=== PATIENT | female | born 1980 ===

== ENCOUNTER 2016-10-03 23:18 | Emergency (ER) | payer OTHER ==
[2016-10-03 23:30] VITALS: BMI 40.4
[2016-10-03 23:34] VITALS: TEMP 97.3
[2016-10-03] MEDS ORDERED: Sodium Chloride 0.9% 1,000 ML IV STA (23:58)
[2016-10-04 00:51] LABS: ADD MANUAL DIFF? NO
[2016-10-04 00:57] LABS: URINE BILIRUBIN NEGATIVE (NEGATIVE); URINE BLOOD TRACE-LYSED (NEGATIVE); URINE GLUCOSE (UA) NEGATIVE (NEGATIVE); URINE KETONE NEGATIVE (NEGATIVE); URINE LEUKOCYTE ESTERASE TRACE Leu/uL (NEGATIVE); URINE PROTEIN NEGATIVE mg/dL (<30 mg/dL); URINE UROBILINOGEN 0.2 E.U./dL (<1 E.U./dL)
[2016-10-04 00:58] LABS: BASO # 0.03 K/mm3 (0.0-2.0); BASO % 0.3 % (0.0-3.0); EOS # 0.2 (0.0-0.7); EOS % 2.3 % (1.5-5.0); GRAN # 6.01 (1.4-6.5); GRAN % 58.3 % (50.0-68.0); HEMATOCRIT 36.1 % (36.0-48.0); LYMPH # 3.4 (1.2-3.4); LYMPH % 33.2 % (22.0-35.0); MEAN CELL VOLUME 80.4 fL (80.0-105.0); MEAN CORPUSCULAR HEMOGLOBIN 26.9 pg (25.0-35.0); MEAN CORPUSCULAR HGB CONC 33.5 g/dl (31.0-37.0); MEAN PLATELET VOLUME 10.6 fl (7.0-11.0); MONO # 0.6 (0.1-0.6); MONO % 5.9 % (1.0-6.0); PLATELET COUNT 245 10^3/uL (120.0-450.0); RED CELL DISTRIBUTION WIDTH 15.3 % (11.5-14.5); WHITE BLOOD COUNT 10.3 10^3/ul (4.5-11.0)
[2016-10-04 01:09] LABS: ALKALINE PHOSPHATASE 95 U/L (38-133); ALT/SGPT 34 U/L (7-56); AST/SGOT 29 U/L (15-39); BILIRUBIN,TOTAL 0.3 mg/dL (0.2-1.3); BLOOD UREA NITROGEN 14 mg/dL (7-21); CALCIUM 8.6 mg/dL (8.4-10.5); CARBON DIOXIDE 28 mmol/L (21-33); CHLORIDE 104 mmol/L (95-110); GFR AFRICAN-AMERICAN > 60; GLUCOSE,RANDOM 81 mg/dL (70-110); LIPASE 28 U/L (23-300); POTASSIUM 3.5 mmol/L (3.6-5.0); SODIUM 139 mmol/L (132-148); TOTAL PROTEIN 7.4 g/dL (5.8-8.3)
[2016-10-04 01:12] LABS: URINE APPEARANCE SL CLOUDY (CLEAR); URINE COLOR YELLOW (YELLOW)
[2016-10-04 01:16] LABS: URINE BACTERIA SMALL (NEG); URINE RBC 0 - 2 /hpf (0-2)
[2016-10-04] MEDS ORDERED: Potassium Chloride 20 mEq/15 ml LIQ UD PO STA (01:23)
[2016-10-04] MEDS ORDERED: Morphine 4 mg/ml ISec IVP STA (01:24)
--- NOTE | 2016-10-04 01:29 | ED PDOC ---
Arrival/HPI - General Chief Complaint: Back Pain Time Seen by Provider: 10/03/16 23:37 Historian: Patient - History of Present Illness Narrative History of Present Illness (Text): 10/04/16 01:24 Patient complains of gradual onset of constant sharp pain in the left flank radiating to the left side of the abdomen that has become progressively worse in the past 2 hours. Otherwise: (-) nausea / vomiting, (-) diarrhea, (-) fever, (-) back pain, (-) urinary symptoms, (-) vaginal discharge / bleeding, (-) melena, (-) hematochezia, (-) fever, (-) injury. Has history of prior abdominal surgery - R ovary was removed due to a cyst. [facility] [place] Past Medical History - Provider Review Nursing Documentation Reviewed: Yes - Infectious Disease Hx of Infectious Diseases: None - Tetanus Immunization Tetanus Immunization: Unknown - Cardiac Hx Cardiac Disorders: No - Pulmonary Hx Respiratory Disorders: Yes Hx Asthma: Yes - Neurological Hx Neurological Disorder: No Hx Alzheimer's Disease: No - HEENT Hx HEENT Disorder: No - Renal Hx Renal Disorder: No - Endocrine/Metabolic Hx Endocrine Disorders: No - Hematological/Oncological Hx Blood Disorders: No - Integumentary Hx Dermatological Disorder: No - Musculoskeletal/Rheumatological Hx Musculoskeletal Disorders: No - Gastrointestinal Hx Gastrointestinal Disorders: No - Genitourinary/Gynecological Hx Genitourinary Disorders: No - Psychiatric Hx Psychophysiologic Disorder: No Hx Substance Use: Yes - Past Surgical History Past Surgical History: No Previous - Surgical History Hx Orthopedic Surgery: Yes (left roator cuff surgery) Other/Comment: right oophorectomy - Anesthesia Hx Anesthesia: Yes Hx Anesthesia Reactions: No Hx Malignant Hyperthermia: No - Suicidal Assessment Feels Threatened In Home Enviroment: No Family/Social History - Physician Review Nursing Documentation Reviewed: Yes Family/Social History: No Known Family HX Smoking Status: Light Smoker < 10 Cigarettes Daily Hx Alcohol Use: Yes Frequency of alcohol use: Socially Hx Substance Use: Yes Hx Substance Use Treatment: No Allergies/Home Meds Allergies/Adverse Reactions: Allergies No Known Allergies Allergy (Verified 05/01/16 16:09) Review of Systems - Review of Systems Constitutional: Normal. absent: Fatigue, Weight Change, Fevers Cardiovascular: Normal. absent: Chest Pain, Palpitations, Edema Gastrointestinal: Normal, Abdominal Pain. absent: Stool Changes, Appetite Changes Genitourinary Female: Normal Musculoskeletal: Normal. absent: Arthralgias, Back Pain, Neck Pain Skin: Normal. absent: Rash, Pruritis, Skin Lesions Physical Exam - Physical Exam Narrative Physical Exam (Text): 10/04/16 01:30 GENERAL APPEARANCE: Patient is awake, alert, oriented x 3, in moderate painful distress. SKIN: Warm, dry; (-) cyanosis. EYES: (-) conjunctival pallor, (-) scleral icterus. ENMT: Mucous membranes dry. NECK: (-) tenderness, (-) stiffness, (-) lymphadenopathy. CHEST AND RESPIRATORY: (-) rales, (-) rhonchi, (-) wheezes; breath sounds equal bilaterally. HEART AND CARDIOVASCULAR: (-) irregularity; (-) murmur, (-) gallop. ABDOMEN AND GI: (-) distention. Bowel sounds active; (+) L sided abdominal and L flank tenderness, (-) guarding, (-) rebound, (-) palpable masses, (-) CVA tenderness. EXTREMITIES: (-) deformity, (-) edema, (+) distal pulses. NEURO AND PSYCH: Mental status as above; (-) focal findings. Vital Signs Temp Pulse Resp BP Pulse Ox 10/04/16 01:58 63 18 101/52 L 99 10/03/16 23:34 97.3 F L 97 H 20 108/83 97 Medical Decision Making ED Course and Treatment: 10/04/16 01:31 36-year-old female presents with 1 day history of left-sided flank pain radiating to the left side of the abdomen with no other GI or symptoms. Based on exam, to r/o renal colic. Plan: -- Labs -- IV fluids -- Urinalysis -- Zofran / Toradol -- Reassess and disposition -- CT AP Labs reviewed, K 3.5, +blood to be present in the urine. On reevaluation, the patient reports of continued pain despite being medicated earlier with Toradol and Zofran. On exam, patient is in mild painful distress, abdomen remained soft with mild left-sided abdominal and mild left CVA tenderness. Patient given a dose of morphine 4 mg IV and KCL PO. CT abdomen and pelvis without contrast still pending. 10/04/16 02:29 CT results show no kidney stone and show no acute findings. On reevaluation, patient reports significant improvement of her pain. She is laying in bed comfortably in no acute distress. On exam abdomen is soft with no tenderness, no flank or CVA tenderness. Based on history, exam and diagnostic results plan will be for outpatient f/u. Patient states she fully agrees with and understands discharge instructions. States that she agrees with the plan and disposition. Verbalized and repeated discharge instructions and plan. I have given the patient opportunity to ask any additional questions. Follow up with primary care physician in 1-2 days without fail. Advised to take medication as prescribed. Return to the emergency room at any time for any new or worsening symptoms. - Lab Interpretations Lab Results: 10/04/16 00:20 10/04/16 00:20 Lab Results 10/04/16 00:20: Sodium 139, Potassium 3.5 L, Chloride 104, Carbon Dioxide 28, Anion Gap 11, BUN 14, Creatinine 0.7, Est GFR ( Amer) > 60, Est GFR (Non- Af Amer) > 60, Random Glucose 81, Calcium 8.6, Total Bilirubin 0.3, AST 29, ALT 34, Alkaline Phosphatase 95, Total Protein 7.4, Albumin 3.8, Globulin 3.7, Albumin/Globulin Ratio 1.0 L, Lipase 28 10/04/16 00:20: Urine Color Yellow, Urine Appearance Sl cloudy, Urine pH 6.0, Ur Specific [place] >= 1.030, Urine Protein Negative, Urine Glucose (UA) Negative, Urine Ketones Negative, Urine Blood Trace-lysed H, Urine Nitrate Negative, Urine Bilirubin Negative, Urine Urobilinogen 0.2, Ur Leukocyte Esterase Trace H, Urine RBC 0 - 2, Urine WBC 1 - 3, Ur Epithelial Cells 3 - 4, Urine Bacteria Small 10/04/16 00:20: WBC 10.3, RBC 4.49, Hgb 12.1, Hct 36.1, MCV 80.4, MCH 26.9, MCHC 33.5, RDW 15.3 H, Plt Count 245, MPV 10.6, Gran % 58.3, Lymph % (Auto) 33.2 , [place] % (Auto) 5.9, Eos % (Auto) 2.3, Baso % (Auto) 0.3, Gran # 6.01, Lymph # 3.4, [place] # 0.6, Eos # 0.2, Baso # 0.03 I have reviewed the lab results: Yes (K 3.5, Urinalysis : +blood) - RAD Interpretation Narrative RAD Interpretations (Text): 10/04/16 02:26 CT A/P w/o IV/PO contrast: FINDINGS: Lower thorax: No acute findings. ABDOMEN: Liver: Unremarkable. Gallbladder and bile ducts: Unremarkable. No calcified stones. No ductal dilation. Pancreas: Unremarkable. No ductal dilation. Spleen: Unremarkable. No splenomegaly. Adrenals: Unremarkable. No mass. Kidneys and ureters: No evidence of stones within the kidneys, ureters or bladder. No evidence of obstructive uropathy or obstructive nephropathy. Stomach and bowel: Appendix not identified - several bowel loops in lower abdomen. No pericecal inflammatory changes. Appendix: See above. PELVIS: Bladder: Unremarkable. No stones. Reproductive: Unremarkable as visualized. ABDOMEN and PELVIS: Intraperitoneal space: Unremarkable. No free air. No significant fluid collection. Bones/joints: No acute fracture. No dislocation. Soft tissues: Unremarkable. Vasculature: Unremarkable. No abdominal aortic aneurysm. Lymph nodes: Unremarkable. No enlarged lymph nodes. IMPRESSION: 1. No evidence of stones within the kidneys, ureters or bladder. No evidence of obstructive uropathy or obstructive nephropathy. 2. Appendix not identified - several bowel loops in lower abdomen. No pericecal inflammatory changes. Dictated and Authenticated by: Chuy Ballard MD 10/04/2016 2:08 AM Eastern Time ([place] & [place]) Radiology Orders: 10/03/16 23:58 ABD & PELVIS W/O PO OR IV CONT [CT] Stat - Medication Orders Current Medication Orders: Discontinued Medications Sodium Chloride (Sodium Chloride 0.9%) 1,000 mls @ 1,000 mls/hr IV .Q1H STA Stop: 10/04/16 00:57 Last Admin: 10/04/16 00:41 Dose: 1,000 mls/hr Ketorolac Tromethamine (Toradol) 30 mg IVP STAT STA Stop: 10/03/16 23:59 Last Admin: 10/04/16 00:41 Dose: 30 mg Re-Assess: WEST Pain Assessment Document 10/04/16 01:41 RD (Rec: 10/04/16 01:51 RD [id number]) Pain Reassessment Is this a pain reassessment? Yes Sleep Is patient sleeping during reassessment? No Presence of Pain Presence of Pain Yes Location Pain Location Body Site 4th Toe Morphine Sulfate (Morphine) 4 mg IVP STAT STA Stop: 10/04/16 01:25 Last Admin: 10/04/16 01:47 Dose: 4 mg Ondansetron HCl (Zofran Inj) 4 mg IVP STAT STA Stop: 10/03/16 23:59 Last Admin: 10/04/16 00:41 Dose: 4 mg Potassium Chloride (Potassium Chloride Oral Soln) 40 meq PO STAT STA Stop: 10/04/16 01:24 Last Admin: 10/04/16 01:47 Dose: 40 meq - PA / TRAFFIC SIGNAL MECHANIC / Resident Statement MD/DO has reviewed & agrees with the documentation as recorded. Disposition/Present on Arrival - Present on Arrival Any Indicators Present on Arrival: No History of DVT/PE: No History of Uncontrolled Diabetes: No Urinary Catheter: No History of Decub. Ulcer: No History Surgical Site Infection Following: None - Disposition Have Diagnosis and Disposition been Completed?: Yes Diagnosis: Left flank pain Disposition: HOME/ ROUTINE Disposition Time: 02:00 Patient Plan: Discharge Patient Problems: Current Active Problems Problem Status Onset Left flank pain Acute Condition: IMPROVED Discharge Instructions (ExitCare): Flank Pain (ED) Print Language: SERBIAN Additional Instructions: Thank you for letting us take care of you today. You were treated for left flank pain, UTI. The emergency medical care you received today was directed at your acute symptoms. If you were prescribed any medication, please fill it and take as directed. It may take several days for your symptoms to resolve. Return to the Emergency Department if your symptoms worsen, do not improve, or if you have any other problems. Please contact your doctor in 2 days for re-evaluation and follow up / or call one of the physicians/clinics you have been referred to that are listed on the Patient Visit Information form that is included in your discharge packet. Bring any paperwork you were given at discharge with you along with any medications you are taking to your follow up visit. Our treatment cannot replace ongoing medical care by a primary care provider (PCP) outside of the emergency department. Thank you for allowing the [facility] team to be part of your care today. Prescriptions: Naproxen 500 mg PO BID #30 tab Nitrofurantoin Macrocrystals [Macrobid] 100 mg PO BID #20 cap Referrals: Ina Esparza Regage, [Primary Care Provider] - Follow up with primary Forms: WORK NOTE
[2016-10-04 01:59] VITALS: BP 101/52; PULSE 63; RESP 18; O2SAT 99
--- NOTE | 2016-10-04 07:45 | CT ---
PROCEDURE: CT Abdomen and Pelvis without intravenous contrast HISTORY: L flank pain, r/o stone COMPARISON: None. TECHNIQUE: CT scan of the abdomen and pelvis was performed without administration of oral or intravenous contrast. Coronal and sagittal reformatted images were obtained. Radiation dose: Total exam DLP = 1359.60 mGy-cm. This CT exam was performed using one or more of the following dose reduction techniques: Automated exposure control, adjustment of the mA and/or kV according to patient size, and/or use of iterative reconstruction technique. FINDINGS: LOWER THORAX: The lung bases are clear. LIVER: The liver is normal in size. No intra hepatic biliary ductal dilatation. GALLBLADDER AND BILE DUCTS: The gallbladder is contracted. PANCREAS: The pancreas is normal in size. No gross lesion or ductal dilatation. SPLEEN: There is borderline splenomegaly. ADRENALS: Both adrenal glands are normal in size without discrete nodule. KIDNEYS AND URETERS: Both kidneys are normal in size without hydronephrosis or nephrolithiasis. VASCULATURE: No aortic aneurysm. BOWEL: The small bowel loops are normal in caliber. The colon is unremarkable. APPENDIX: No inflammatory changes in the right lower quadrant. PERITONEUM: No free fluid. No free air. LYMPH NODES: No enlarged lymph nodes. BLADDER: Partially decompressed. REPRODUCTIVE: The uterus is normal in size. BONES: No acute fracture. OTHER FINDINGS: None. IMPRESSION: No acute abdominal or pelvic abnormality. Specifically, no evidence of nephrolithiasis, hydronephrosis or obstructive uropathy. The appendix is not distinctly identified however no inflammatory changes in the right lower quadrant. A preliminary report was provided by [facility].
== END 2016-10-04 02:41 | disposition home or self-care (01) ==
LOC: ED 23:18
DX: R10.9 Unspecified abdominal pain (principal)
CPT/HCPCS: 74176; 80053; 81001; 83690; 85025; 87086; 96361; 96374; 96375; 99283; J1885; J2270; J2405; J7040

== ENCOUNTER 2017-05-31 09:31 | Emergency (ER) | payer OTHER ==
[2017-05-31 09:31] VITALS: BMI 40.4
[2017-05-31 09:44] VITALS: RESP 18; O2SAT 98
[2017-05-31] MEDS ORDERED: Promethazine/Cod 6.25mg-10mg/5ml Syr UD PO STA (10:33)
--- NOTE | 2017-05-31 10:34 | ED PDOC ---
Arrival/HPI - General Chief Complaint: Flu-like Symptoms Time Seen by Provider: 05/31/17 10:33 Historian: Patient - History of Present Illness Narrative History of Present Illness (Text): 05/31/17 10:34 This 37 yo female with pmh asthma, presents to this ED c/o cough, fever, mylagias x 1 day. Patient denies sob, cp, recent travel, sick contact, dizziness, or abnormal gait. Time/Duration: Other (see hpi) Context: Home Past Medical History - Provider Review Nursing Documentation Reviewed: Yes - Infectious Disease Hx of Infectious Diseases: None - Tetanus Immunization Tetanus Immunization: Unknown - Cardiac Hx Cardiac Disorders: No - Pulmonary Hx Respiratory Disorders: Yes Hx Asthma: Yes - Neurological Hx Neurological Disorder: No - HEENT Hx HEENT Disorder: No - Renal Hx Renal Disorder: No - Endocrine/Metabolic Hx Endocrine Disorders: No - Hematological/Oncological Hx Blood Disorders: No - Integumentary Hx Dermatological Disorder: No - Musculoskeletal/Rheumatological Hx Musculoskeletal Disorders: No - Gastrointestinal Hx Gastrointestinal Disorders: No - Genitourinary/Gynecological Hx Genitourinary Disorders: No - Psychiatric Hx Psychophysiologic Disorder: No Hx Substance Use: Yes - Past Surgical History Past Surgical History: No Previous - Surgical History Hx Orthopedic Surgery: Yes (left roator cuff surgery) Other/Comment: right oophorectomy - Anesthesia Hx Anesthesia: Yes Hx Anesthesia Reactions: No Hx Malignant Hyperthermia: No - Suicidal Assessment Feels Threatened In Home Enviroment: No Family/Social History - Physician Review Nursing Documentation Reviewed: Yes Family/Social History: Other (noncontributory) Smoking Status: Light Smoker < 10 Cigarettes Daily Hx Alcohol Use: Yes Hx Substance Use: Yes Hx Substance Use Treatment: No Allergies/Home Meds Allergies/Adverse Reactions: Allergies No Known Allergies Allergy (Verified 05/31/17 09:46) Review of Systems - Review of Systems Constitutional: Fevers. absent: Fatigue, Weight Change Eyes: Normal ENT: Rhinorrhea Respiratory: Cough. absent: SOB, Sputum, Wheezing Cardiovascular: Normal. absent: Chest Pain, Palpitations Gastrointestinal: Normal. absent: Abdominal Pain, Nausea, Vomiting Genitourinary Female: Normal. absent: Dysuria, Frequency, Hematuria Musculoskeletal: Myalgias Skin: Normal. absent: Rash Neurological: Normal. absent: Headache, Dizziness, Focal Weakness, Gait Changes , Speech Changes, Facial Droop, Disequilibrium, Seizure Endocrine: Normal Hemo/Lymphatic: Normal Psychiatric: Normal Physical Exam Vital Signs Temp Pulse Resp BP Pulse Ox 05/31/17 09:44 97.5 F L 110 H 18 155/85 H 98 Temperature: Afebrile Blood Pressure: Normal Pulse: Tachycardic Respiratory Rate: Normal Appearance: Positive for: Well-Appearing, Non-Toxic, Comfortable Pain Distress: None Mental Status: Positive for: Alert and Oriented X 3 - Systems Exam Head: Present: Atraumatic, Normocephalic Pupils: Present: PERRL Extroacular Muscles: Present: EOMI Conjunctiva: Present: Normal Mouth: Present: Moist Mucous Membranes Neck: Present: Normal Range of Motion. No: Meningeal Signs Respiratory/Chest: Present: Clear to Auscultation, Good Air Exchange. No: Respiratory Distress, Accessory Muscle Use Cardiovascular: Present: Regular Rate and Rhythm, Normal S1, S2. No: Murmurs Abdomen: Present: Normal Bowel Sounds. No: Tenderness, Distention, Peritoneal Signs Back: Present: Normal Inspection Upper Extremity: Present: Normal Inspection, Normal ROM. No: Cyanosis, Edema Lower Extremity: Present: Normal Inspection, Normal ROM. No: Edema Neurological: Present: GCS=15, CN II-XII Intact, Speech Normal Skin: Present: Warm, Dry, Normal Color. No: Rashes Psychiatric: Present: Alert, Oriented x 3, Normal Insight, Normal Concentration Medical Decision Making ED Course and Treatment: 05/31/17 12:19 Re-evaluation. Patient feels better. Discussed results and plan with patient who expresses understanding. All questions answered and there is agreement with the plan to discharge home with instructions. Patient stable for discharge. Return if symptoms persist or worsen. Re-evaluation Time: 12:19 Reassessment Condition: Re-examined, Improved - Lab Interpretations Lab Results: Lab Results 05/31/17 11:29: Influenza Typ A,B (EIA) Negative for flu a/b - Medication Orders Current Medication Orders: Discontinued Medications Acetaminophen (Tylenol 325mg Tab) 975 mg PO STAT STA Stop: 05/31/17 10:34 Last Admin: 05/31/17 10:45 Dose: 975 mg MAR Pain/Vitals Document 05/31/17 10:45 OCS (Rec: 05/31/17 10:45 OCS [id number]) Pain Reassessment Is This A Pain ReAssessment? Yes Sleep Is patient sleeping during reassessment? No Presence of Pain Presence of Pain Yes Pain Scale Used Pain Scale Used Numeric Location Pain Location Body Site Generalized Description Constant Intensity 6 Scale Used Numeric Aggravating Factors ADL's Promethazine HCl/Codeine (Phenergan/Codeine Oral Syrup) 5 ml PO STAT STA Stop: 05/31/17 10:34 Last Admin: 05/31/17 10:45 Dose: 5 ml Disposition/Present on Arrival - Present on Arrival Any Indicators Present on Arrival: No History of DVT/PE: No History of Uncontrolled Diabetes: No Urinary Catheter: No History of Decub. Ulcer: No History Surgical Site Infection Following: None - Disposition Have Diagnosis and Disposition been Completed?: Yes Diagnosis: Upper respiratory infection Disposition: HOME/ ROUTINE Disposition Time: 12:19 Patient Plan: Discharge Patient Problems: Current Active Problems Problem Status Onset Upper respiratory infection Acute Condition: GOOD Discharge Instructions (ExitCare): Upper Respiratory Infection (ED) Additional Instructions: Call private doctor for follow up visit in 1-2 days. take medication as instructed. Drink enough fluids. Do not drive or operate machinery if you are taking cough medication for at least 8 hours. Prescriptions: Promethazine/Codeine [Codeine/Promethazine 10 MG/5 Ml-6.25 MG/5 Ml] 5 ml PO Q4H PRN #180 ml PRN Reason: Cough Referrals: Ina Randolph, [Primary Care Provider] - Follow up with primary Fransisco Healy DO [Staff Provider] - Follow up with primary Forms: [facility] (Chinese), WORK NOTE
[2017-05-31 12:29] VITALS: BP 148/79; PULSE 94; TEMP 98
== END 2017-05-31 12:39 | disposition home or self-care (01) ==
LOC: ED 09:31
DX: J06.9 Acute upper respiratory infection, unspecified (principal); F17.210 Nicotine dependence, cigarettes, uncomplicated

== ENCOUNTER 2017-09-05 15:18 | Emergency (ER) | payer OTHER ==
--- NOTE | 2017-09-05 15:26 | ED PDOC ---
Arrival/HPI - General Time Seen by Provider: 09/05/17 15:25 Historian: Patient - History of Present Illness Narrative History of Present Illness (Text): 09/05/17 15:25 37 y/o female, pmh including ovarin cyst/asthma/smoker, nkda, c/o asthma exacerbation x 2 days. Pt. stated that she has been having runny nose and cough x 3 days, associated with wheezing today, limited relief with the albuterol pump, no numbness or tingling, no flank pain, no chest pain , no shortness of breath, no night sweat, no other medical or psychological complaints. Past Medical History - Provider Review Nursing Documentation Reviewed: Yes - Infectious Disease Hx of Infectious Diseases: None - Tetanus Immunization Tetanus Immunization: Unknown - Cardiac Hx Cardiac Disorders: No - Pulmonary Hx Respiratory Disorders: Yes Hx Asthma: Yes - Neurological Hx Neurological Disorder: No - HEENT Hx HEENT Disorder: No - Renal Hx Renal Disorder: No - Endocrine/Metabolic Hx Endocrine Disorders: No - Hematological/Oncological Hx Blood Disorders: No - Integumentary Hx Dermatological Disorder: No - Musculoskeletal/Rheumatological Hx Musculoskeletal Disorders: No - Gastrointestinal Hx Gastrointestinal Disorders: No - Genitourinary/Gynecological Hx Genitourinary Disorders: No - Psychiatric Hx Psychophysiologic Disorder: No Hx Substance Use: Yes - Past Surgical History Past Surgical History: No Previous - Surgical History Hx Orthopedic Surgery: Yes (left roator cuff surgery) Other/Comment: right oophorectomy - Anesthesia Hx Anesthesia: Yes Hx Anesthesia Reactions: No Hx Malignant Hyperthermia: No - Suicidal Assessment Feels Threatened In Home Enviroment: No Family/Social History - Physician Review Nursing Documentation Reviewed: Yes Family/Social History: Unknown Family HX Smoking Status: Light Smoker < 10 Cigarettes Daily Hx Alcohol Use: Yes Hx Substance Use: Yes Hx Substance Use Treatment: No Allergies/Home Meds Allergies/Adverse Reactions: Allergies No Known Allergies Allergy (Verified 05/31/17 09:46) Home Medications: Home Meds Medication Instructions Recorded Confirmed Albuterol 0.083% [Albuterol 0.083% 1 vial IH QID 09/05/17 09/05/17 Inhal Patti (2.5 mg/3 ml) UD] Albuterol HFA [Ventolin HFA 90 1 puff IH QID 09/05/17 09/05/17 mcg/actuation (8 g)] Review of Systems - Review of Systems Constitutional: absent: Fatigue, Fevers Eyes: absent: Vision Changes ENT: absent: Hearing Changes Respiratory: Cough, Wheezing. absent: SOB, Sputum Cardiovascular: absent: Chest Pain Gastrointestinal: absent: Abdominal Pain, Diarrhea, Nausea, Vomiting Skin: absent: Rash, Pruritis Neurological: absent: Headache Psychiatric: absent: Anxiety, Depression, Suicidal Ideation Physical Exam Vital Signs Reviewed: Yes Vital Signs Temp Pulse Resp BP Pulse Ox 09/05/17 15:30 98.2 F 81 20 113/78 98 Temperature: Afebrile Blood Pressure: Normal Pulse: Regular Respiratory Rate: Normal Appearance: Positive for: Well-Appearing, Non-Toxic, Comfortable Pain Distress: None Mental Status: Positive for: Alert and Oriented X 3 - Systems Exam Head: Present: Atraumatic, Normocephalic Pupils: Present: PERRL Extroacular Muscles: Present: EOMI Conjunctiva: Present: Normal Mouth: Present: Moist Mucous Membranes Neck: Present: Normal Range of Motion Respiratory/Chest: Present: Wheezes (scattered wheezing rt. upper and middle lobe). No: Respiratory Distress, Accessory Muscle Use, Retracting, Rhonchi, Tachypneic, Tender to Palpation Cardiovascular: Present: Regular Rate and Rhythm, Normal S1, S2. No: Murmurs Abdomen: No: Tenderness, Distention, Peritoneal Signs Back: Present: Normal Inspection Upper Extremity: Present: Normal Inspection. No: Cyanosis, Edema Lower Extremity: Present: Normal Inspection. No: Edema Neurological: Present: GCS=15, CN II-XII Intact, Speech Normal, Motor Func Grossly Intact, Gait Normal, Memory Normal Skin: Present: Warm, Dry, Normal Color. No: Rashes Psychiatric: Present: Alert, Oriented x 3, Normal Insight, Normal Concentration Medical Decision Making ED Course and Treatment: 09/05/17 15:43 -duoneb/prednisone -Chest xray -Observe and reassess 09/05/17 17:21 -Urine hcg is negative -Azithromycin ordered -Chest xray show No active disease. -Wheezing resolved, all symptoms resolved, walking around, vitally stable, request to be discharge home. -Discharge home with zithromax, claritin, albuterol MDI, prednisone, stay hydrated, stop smoking, bed rest, follow up with your own pmd and supervisor customer services within 2 days, return to the ER for any new or worsening signs or symptoms. - RAD Interpretation Radiology Orders: 09/05/17 15:39 CHEST ONE VIEW [RAD] Stat HISTORY: cough and wheezing COMPARISON: 0.2 FINDINGS: LUNGS: Clear. PLEURA: No pneumothorax or pleural fluid seen. CARDIOVASCULAR: Normal. OSSEOUS STRUCTURES: No significant abnormalities. VISUALIZED UPPER ABDOMEN: Normal. OTHER FINDINGS: None. IMPRESSION: No active disease. Law Examiner: Radiologist - Medication Orders Current Medication Orders: Discontinued Medications Albuterol/Ipratropium (Duoneb 3 Mg/0.5 Mg (3 Ml) Ud) 3 ml IH Q15M CHEVY Stop: 09/05/17 16:16 Last Admin: 09/05/17 16:34 Dose: 3 ml Prednisone (Prednisone Tab) 60 mg PO STAT ONE Stop: 09/05/17 15:40 Last Admin: 09/05/17 15:50 Dose: 60 mg - PA / [employer] SALES SUPERVISOR / Resident Statement MD/DO has reviewed & agrees with the documentation as recorded. Disposition/Present on Arrival - Present on Arrival Any Indicators Present on Arrival: No History of DVT/PE: No History of Uncontrolled Diabetes: No Urinary Catheter: No History Surgical Site Infection Following: None - Disposition Have Diagnosis and Disposition been Completed?: Yes Diagnosis: Bronchitis Disposition: HOME/ ROUTINE Disposition Time: 15:44 Patient Plan: Discharge Condition: IMPROVED Additional Instructions: -Discharge home with zithromax, claritin, albuterol MDI, prednisone, stay hydrated, stop smoking, bed rest, follow up with your own pmd and supervisor customer services within 2 days, return to the ER for any new or worsening signs or symptoms. Prescriptions: Albuterol HFA [Ventolin HFA 90 mcg/actuation (8 g)] 2 puff IH [id number] #1 in Azithromycin [Zithromax] 250 mg PO DAILY #4 tab Benzonatate [Tessalon Perles] 200 mg PO TID PRN #45 sgl PRN Reason: Other Loratadine [Claritin] 10 mg PO DAILY PRN #10 tab PRN Reason: Other Prednisone 50 mg PO DAILY #4 tab Referrals: Ina Randolph, [Primary Care Provider] - Follow up with primary Polo Mathias MD [Staff Provider] - Follow up with primary Sugey Ag MD [Staff Provider] - Follow up with primary Forms: WORK NOTE
[2017-09-05 15:37] VITALS: BMI 47.7
[2017-09-05] MEDS: Albuterol-Ipratrop 3 mg / 0.5 (3 ml) UD IH SCH ×3 (15:50→16:34)
--- NOTE | 2017-09-05 17:18 | RAD ---
PROCEDURE: CHEST RADIOGRAPH, 1 VIEW HISTORY: cough and wheezing COMPARISON: 0.2 FINDINGS: LUNGS: Clear. PLEURA: No pneumothorax or pleural fluid seen. CARDIOVASCULAR: Normal. OSSEOUS STRUCTURES: No significant abnormalities. VISUALIZED UPPER ABDOMEN: Normal. OTHER FINDINGS: None. IMPRESSION: No active disease.
[2017-09-05 17:27] VITALS: BP 121/68; PULSE 75; RESP 18
[2017-09-05 17:43] VITALS: TEMP 98.5; O2SAT 98
== END 2017-09-05 17:43 | disposition home or self-care (01) ==
LOC: ED 15:18
DX: J40 Bronchitis, not specified as acute or chronic (principal); F17.210 Nicotine dependence, cigarettes, uncomplicated

== ENCOUNTER 2017-12-25 07:31 | Emergency (ER) | payer OTHER ==
[2017-12-25 07:46] VITALS: BP 107/54; O2SAT 99; BMI 47.4
--- NOTE | 2017-12-25 07:57 | ED PDOC ---
Arrival/HPI - General Chief Complaint: Chest Pain Time Seen by Provider: 12/25/17 07:48 Historian: Patient - History of Present Illness Narrative History of Present Illness (Text): 12/25/17 08:01 37 yr old female w/ hx of smoking p/w chest pain. Pt notes chest pain started yesterday night, center of chest, without radiation, first time occurence. She notes taking advil yesterday with mild relief of the pain. She denies any sob, orthopnea, pnd or leg swelling. No hx of blood clots, venous stasis, family hx of clotting disorders, control, cancer, trauma, recent surgery or hemoptysis. There is no CP w/ exertion or SOB w/ exertion. No cough, fever, chills or night sweats. No headache, nausea or vomiting. LMP was 11/21, normal. No abdominal pain, urinary complaints, or rashes. No dark or bloody stool. No constipation or diarrhea. PMD: Dr. Yadi Espinal Past Medical History - Provider Review Nursing Documentation Reviewed: Yes - Travel History Have you recently traveled outside [place] w/in the past 3 mons?: No - Infectious Disease Hx of Infectious Diseases: None - Tetanus Immunization Tetanus Immunization: Unknown - Cardiac Hx Cardiac Disorders: No - Pulmonary Hx Respiratory Disorders: Yes Hx Asthma: Yes - Neurological Hx Neurological Disorder: No - HEENT Hx HEENT Disorder: No - Renal Hx Renal Disorder: No - Endocrine/Metabolic Hx Endocrine Disorders: No - Hematological/Oncological Hx Blood Disorders: No - Integumentary Hx Dermatological Disorder: No - Musculoskeletal/Rheumatological Hx Musculoskeletal Disorders: No - Gastrointestinal Hx Gastrointestinal Disorders: No - Genitourinary/Gynecological Hx Genitourinary Disorders: No - Psychiatric Hx Psychophysiologic Disorder: No Hx Substance Use: No - Past Surgical History Past Surgical History: No Previous - Surgical History Hx Orthopedic Surgery: Yes (left roator cuff surgery) Other/Comment: right oophorectomy - Anesthesia Hx Anesthesia: Yes Hx Anesthesia Reactions: No Hx Malignant Hyperthermia: No - Suicidal Assessment Feels Threatened In Home Enviroment: No Family/Social History - Physician Review Nursing Documentation Reviewed: Yes Family/Social History: Unknown Family HX Smoking Status: Light Smoker < 10 Cigarettes Daily Hx Alcohol Use: Yes Frequency of alcohol use: Socially Hx Substance Use: No Hx Substance Use Treatment: No Allergies/Home Meds Allergies/Adverse Reactions: Allergies No Known Allergies Allergy (Verified 05/31/17 09:46) Home Medications: Home Meds Medication Instructions Recorded Confirmed Albuterol 0.083% [Albuterol 0.083% 1 vial IH QID 09/05/17 09/05/17 Inhal Patti (2.5 mg/3 ml) UD] Albuterol HFA [Ventolin HFA 90 1 puff IH QID 09/05/17 09/05/17 mcg/actuation (8 g)] Review of Systems - Review of Systems Constitutional: Normal Eyes: Normal ENT: Normal Respiratory: Normal. absent: SOB, Cough, Sputum, Wheezing Cardiovascular: Chest Pain. absent: Palpitations, Edema, Calf Pain, REYES, Orthopnea, Syncope Gastrointestinal: Normal. absent: Abdominal Pain, Stool Changes, Constipation, Diarrhea Genitourinary Female: Normal Musculoskeletal: Normal Skin: Normal Neurological: Normal Endocrine: Normal Hemo/Lymphatic: Normal Psychiatric: Normal Physical Exam Vital Signs Temp Pulse Resp BP Pulse Ox 12/25/17 07:46 97.9 F 80 20 107/54 L 99 12/25/17 07:45 97.9 F 80 20 107/54 L 99 Temperature: Afebrile Pulse: Regular Respiratory Rate: Normal Appearance: Positive for: Well-Appearing, Non-Toxic, Comfortable Pain Distress: None Mental Status: Positive for: Alert and Oriented X 3 - Systems Exam Head: Present: Atraumatic, Normocephalic Pupils: Present: PERRL Extroacular Muscles: Present: EOMI Conjunctiva: Present: Normal Mouth: Present: Moist Mucous Membranes Neck: Present: Normal Range of Motion Respiratory/Chest: Present: Clear to Auscultation, Good Air Exchange. No: Respiratory Distress, Accessory Muscle Use, Wheezes, Decreased Breath Sounds, Rales, Retracting, Rhonchi, Tachypneic, Tender to Palpation Cardiovascular: Present: Regular Rate and Rhythm, Normal S1, S2. No: Murmurs Abdomen: No: Tenderness, Distention, Peritoneal Signs Back: Present: Normal Inspection Upper Extremity: Present: Normal Inspection. No: Cyanosis, Edema Lower Extremity: Present: Normal Inspection. No: Edema Neurological: Present: GCS=15, CN II-XII Intact, Speech Normal Skin: Present: Warm, Dry, Normal Color. No: Rashes Psychiatric: Present: Alert, Oriented x 3, Normal Insight, Normal Concentration Medical Decision Making ED Course and Treatment: 12/25/17 08:04 37 year old female w/ hx of smoking p/w chest pain. She is low pretest wells and PERCs out. Her heart score is low. No tearing chest pain or hx of HTN or kidney disorders or cysts or marfans. Will seek troponin, labs and imaging. U/L PNA given no fever, chills or cough. Likely costrochondritis vs msk pain. She denies any drug use. Heart score Age: 0 Story: 0 EK RF: 1 Troponin: pending EKG: Ordered, reviewed, and independently interpreted the EKG. Rate : 83 BPM Rhythm : NSR Interpretation : No STEMI, No ST-segment elevations or depressions, no T-wave inversions, normal intervals. Comparison : No previous EKG for comparison. 12/25/17 10:30 Preliminary results of patient's Chest X-ray show no active disease as interpreted by me. troponin negative. Heart score 1: Low. pt endorses improvement of pain, likely msk. Will have pt follow up w/ cards and PMD outpt - Lab Interpretations Lab Results: 12/25/17 09:15 12/25/17 09:15 Lab Results 12/25/17 09:15: TSH 3rd Generation 1.09 12/25/17 09:15: Sodium 143, Potassium 3.6, Chloride 108 H, Carbon Dioxide 25, Anion Gap 13, BUN 13, Creatinine 0.7, Est GFR ( Amer) > 60, Est GFR (Non- Af Amer) > 60, Random Glucose 104, Calcium 8.0 L, Total Bilirubin 0.3, AST 17, ALT 22, Alkaline Phosphatase 84, Troponin I < 0.01, Total Protein 6.5, Albumin 3.4, Globulin 3.1, Albumin/Globulin Ratio 1.1 12/25/17 09:15: WBC 7.6 D, RBC 4.59, Hgb 11.9 L, Hct 35.7 L, MCV 77.8 L, MCH 25.9, MCHC 33.3, RDW 15.3 H, Plt Count 248, MPV 10.8, Gran % 59.3, Lymph % (Auto ) 30.9, [place] % (Auto) 6.2 H, Eos % (Auto) 3.3, Baso % (Auto) 0.3, Gran # 4.53, Lymph # (Auto) 2.4, [place] # (Auto) 0.5, Eos # (Auto) 0.3, Baso # (Auto) 0.02 - RAD Interpretation Radiology Orders: 12/25/17 08:00 CHEST TWO VIEWS (PA/LAT) [RAD] Stat - Medication Orders Current Medication Orders: Discontinued Medications Acetaminophen (Tylenol 325mg Tab) 650 mg PO STAT STA Stop: 12/25/17 08:13 Last Admin: 12/25/17 09:34 Dose: 650 mg MAR Pain/Vitals Document 12/25/17 09:34 [email or web address] (Rec: 12/25/17 09:35 [id number]) Pain Reassessment Is This A Pain ReAssessment? No Sleep Is patient sleeping during reassessment? No Presence of Pain Presence of Pain Yes Pain Scale Used Pain Scale Used Numeric Location Pain Location Body Site Chest Description Constant Intensity 3 Scale Used Numeric Pain Behavior Facial Grimacing Aggravating Factors Changing Position Alleviating Factors Medication Al Hydrox/Mg Hydrox/Simethicone (Maalox Plus 30 Ml) 30 ml PO STAT STA Stop: 12/25/17 08:13 Last Admin: 12/25/17 09:34 Dose: 30 ml Ibuprofen (Motrin Tab) 600 mg PO STAT STA Stop: 12/25/17 10:23 Disposition/Present on Arrival - Present on Arrival Any Indicators Present on Arrival: No History of DVT/PE: No History of Uncontrolled Diabetes: No Urinary Catheter: No History of Decub. Ulcer: No History Surgical Site Infection Following: None - Disposition Have Diagnosis and Disposition been Completed?: Yes Diagnosis: Chest pain Disposition Time: 10:20 Condition: GOOD Discharge Instructions (ExitCare): Chest Pain (ED) Additional Instructions: MEGHANA ZAVALA, thank you for letting us take care of you today. Your provider was Kenton Parra and you were treated for CHEST PAIN. The emergency medical care you received today was directed at your acute symptoms. If you were prescribed any medication, please fill it and take as directed. It may take several days for your symptoms to resolve. Return to the Emergency Department if your symptoms worsen, do not improve, or if you have any other problems. Please contact your doctor or call one of the physicians/clinics you have been referred to that are listed on the Patient Visit Information form that is included in your discharge packet. Bring any paperwork you were given at discharge with you along with any medications you are taking to your follow up visit. Our treatment cannot replace ongoing medical care by a primary care provider outside of the emergency department. Thank you for allowing the [facility] team to be part of your care today. If you had an X-Ray or CT scan: A Radiologist will review the ED reading if any change in treatment is needed we will contact you. If you had a blood, urine, or wound culture: It will take several days for the results, if any change in treatment is needed we will contact you. If you had an STI test: It will take 48 hours for the results. Please call after 1 week if you have not heard back. Referrals: Yadi Espinal NP [Primary Care Provider] - Follow up with primary Boogie Ferreira MD [Staff Provider] - Follow up with primary Forms: IMVU (Greek)
[2017-12-25] MEDS ORDERED: Alum-Mag Hydrox-Simethicone Susp (30 mL) PO STA (08:12)
[2017-12-25 09:37] LABS: BASO # 0.02 K/mm3 (0.0-2.0); BASO % 0.3 % (0.0-3.0); EOS # 0.3 (0.0-0.7); EOS % 3.3 % (1.5-5.0); GRAN # 4.53 (1.4-6.5); GRAN % 59.3 % (50.0-68.0); HEMOGLOBIN 11.9 g/dL (12.0-16.0); LYMPH # 2.4 (1.2-3.4); LYMPH % 30.9 % (22.0-35.0); MEAN CELL VOLUME 77.8 fl (80.0-105.0); MEAN CORPUSCULAR HEMOGLOBIN 25.9 pg (25.0-35.0); MEAN CORPUSCULAR HGB CONC 33.3 g/dl (31.0-37.0); MEAN PLATELET VOLUME 10.8 fl (7.0-11.0); MONO # 0.5 (0.1-0.6); MONO % 6.2 % (1.0-6.0); RBC 4.59 10^6/uL (3.5-6.1); RED CELL DISTRIBUTION WIDTH 15.3 % (11.5-14.5); WHITE BLOOD COUNT 7.6 10^3/ul (4.5-11.0)
[2017-12-25 09:49] LABS: ALB/GLOB RATIO 1.1 (1.1-1.8); ALBUMIN 3.4 g/dL (3.0-4.8); ALT/SGPT 22 U/L (7-56); AST/SGOT 17 U/L (14-36); BLOOD UREA NITROGEN 13 mg/dL (7-21); GFR NON-AFRICAN AMERICAN > 60
[2017-12-25 10:00] LABS: TROPONIN I < 0.01 ng/mL
--- NOTE | 2017-12-25 10:44 | RAD ---
HISTORY: chest pain COMPARISON: Chest x-ray performed 09/05/17 TECHNIQUE: Chest PA and lateral FINDINGS: Examination limited by habitus. LUNGS: No focal consolidation. Please note that chest x-ray has limited sensitivity for the detection of pulmonary masses. PLEURA: No significant pleural effusion identified. No definite pneumothorax . CARDIOVASCULAR: Heart size appears within normal limits. OSSEOUS STRUCTURES: Degenerative changes of the spine. Postsurgical changes, left humeral head. VISUALIZED UPPER ABDOMEN: Unremarkable. OTHER FINDINGS: None. IMPRESSION: No focal consolidation, significant pleural effusion, or definite pneumothorax identified.
[2017-12-25 11:11] VITALS: PULSE 81; RESP 17; TEMP 98.1
--- NOTE | 2017-12-25 13:41 | CARD ---
APPROVED REPORT Date of service: 12/25/2017 EKG Measurement Heart [id number] <Conclusion> Normal sinus rhythm Normal ECG
== END 2017-12-25 11:11 | disposition home or self-care (01) ==
LOC: ED 07:31
DX: R07.9 Chest pain, unspecified (principal); F17.210 Nicotine dependence, cigarettes, uncomplicated

== ENCOUNTER 2018-02-06 10:13 | Emergency (ER) | payer OTHER ==
[2018-02-06 10:13] VITALS: BMI 47.4
[2018-02-06 10:38] VITALS: TEMP 98.6
--- NOTE | 2018-02-06 12:32 | ED PDOC ---
Arrival/HPI - General Historian: Patient - History of Present Illness Narrative History of Present Illness (Text): 02/06/18 12:27 37yo morbidly obese female with no pmhx who present with complaint of left ankle pain s/p trauma yesterday. States she twisted her ankle yesterday, while coming downstairs. Reports pain and swelling to the area. states she applied to the area last night. she did not take any medication for the pain. Pain with ambulation. Denies any other complaint. <Modesto Wright A - Last Filed: 02/06/18 12:27> <Romaine Ewing - Last Filed: 02/13/18 05:23> - General Chief Complaint: Lower Extremity Problem/Injury Time Seen by Provider: 02/06/18 10:44 Past Medical History - Provider Review Nursing Documentation Reviewed: Yes - Infectious Disease Hx of Infectious Diseases: None - Tetanus Immunization Tetanus Immunization: Unknown - Reproductive Menopause: No - Cardiac Hx Cardiac Disorders: No - Pulmonary Hx Respiratory Disorders: Yes Hx Asthma: Yes - Neurological Hx Neurological Disorder: No - HEENT Hx HEENT Disorder: No - Renal Hx Renal Disorder: No - Endocrine/Metabolic Hx Endocrine Disorders: No - Hematological/Oncological Hx Blood Disorders: No - Integumentary Hx Dermatological Disorder: No - Musculoskeletal/Rheumatological Hx Musculoskeletal Disorders: No - Gastrointestinal Hx Gastrointestinal Disorders: No - Genitourinary/Gynecological Hx Genitourinary Disorders: No - Psychiatric Hx Psychophysiologic Disorder: No Hx Substance Use: No - Past Surgical History Past Surgical History: No Previous - Surgical History Hx Orthopedic Surgery: Yes (left roator cuff surgery) Other/Comment: right oophorectomy - Anesthesia Hx Anesthesia: Yes Hx Anesthesia Reactions: No Hx Malignant Hyperthermia: No - Suicidal Assessment Feels Threatened In Home Enviroment: No <KyleHappiness A - Last Filed: 02/06/18 12:27> Family/Social History - Physician Review Nursing Documentation Reviewed: Yes Family/Social History: Unknown Family HX Smoking Status: Light Smoker < 10 Cigarettes Daily Hx Alcohol Use: Yes Hx Substance Use: No Hx Substance Use Treatment: No <KyleHappiness A - Last Filed: 02/06/18 12:27> Allergies/Home Meds <KyleHappiness A - Last Filed: 02/06/18 12:27> <Romaine Ewing - Last Filed: 02/13/18 05:23> Allergies/Adverse Reactions: Allergies No Known Allergies Allergy (Verified 05/31/17 09:46) Home Medications: Home Meds Medication Instructions Recorded Confirmed Albuterol HFA [Ventolin HFA 90 1 puff IH QID 09/05/17 09/05/17 mcg/actuation (8 g)] RX: Albuterol 0.083% [Albuterol 1 vial IH QID 09/05/17 09/05/17 0.083% Inhal Patti (2.5 mg/3 ml) UD] Review of Systems - Physician Review All systems were reviewed & negative as marked: Yes - Review of Systems Constitutional: Normal Eyes: Normal ENT: Normal Respiratory: Normal Cardiovascular: Normal Gastrointestinal: Normal Genitourinary Female: Normal Musculoskeletal: Arthralgias (Left ankle) Skin: Normal Neurological: Normal Endocrine: Normal Hemo/Lymphatic: Normal Psychiatric: Normal <Diru,Happiness A - Last Filed: 02/06/18 12:27> Physical Exam Vital Signs Reviewed: Yes Vital Signs Temp Pulse Resp BP Pulse Ox 02/06/18 10:34 98.6 F 98 H 20 104/68 99 Temperature: Afebrile Blood Pressure: Normal Pulse: Regular Respiratory Rate: Normal Appearance: Positive for: Well-Appearing, Non-Toxic, Comfortable Pain Distress: None Mental Status: Positive for: Alert and Oriented X 3 - Systems Exam Head: Present: Atraumatic, Normocephalic Pupils: Present: PERRL Extroacular Muscles: Present: EOMI Conjunctiva: Present: Normal Mouth: Present: Moist Mucous Membranes Neck: Present: Normal Range of Motion Respiratory/Chest: Present: Clear to Auscultation, Good Air Exchange. No: Respiratory Distress, Accessory Muscle Use Cardiovascular: Present: Regular Rate and Rhythm, Normal S1, S2. No: Murmurs Abdomen: No: Tenderness, Distention, Peritoneal Signs Back: Present: Normal Inspection Upper Extremity: Present: Normal Inspection. No: Cyanosis, Edema Lower Extremity: Present: NORMAL PULSES, Normal ROM, Tenderness (Over the left lateral malleolus), Swelling (Left ankle), Neurovascularly Intact. No: Edema, Erythema (Ecchymosis over left ankle malleolus) Neurological: Present: GCS=15, CN II-XII Intact, Speech Normal Skin: Present: Warm, Dry, Normal Color. No: Rashes Psychiatric: Present: Alert, Oriented x 3, Normal Insight, Normal Concentration <Diru,Happiness A - Last Filed: 02/06/18 12:27> Vital Signs Temp Pulse Resp BP Pulse Ox 02/06/18 13:19 98.6 F 95 H 18 133/77 100 02/06/18 10:34 98.6 F 98 H 20 104/68 99 <Romaine Ewing - Last Filed: 02/13/18 05:23> Medical Decision Making ED Course and Treatment: 02/06/18 12:34 Pt in ED for stated history. Left ankle xray - No acute fracture/dislocation. soft tissue swelling noted Result was DW the pt. Advised to RICE ankle. Cane given for ambulation Ibuprofen rx given Referred to ortho - RAD Interpretation Radiology Orders: 02/06/18 10:44 ANKLE LEFT 3 VIEWS ROUTINE [RAD] Stat - Medication Orders Current Medication Orders: Discontinued Medications Ibuprofen (Motrin Tab) 600 mg PO STAT STA Stop: 02/06/18 11:14 Last Admin: 02/06/18 11:32 Dose: 600 mg MAR Pain/Vitals Document 02/06/18 11:32 LA (Rec: 02/06/18 11:35 LA [id number]) Pain Reassessment Is This A Pain ReAssessment? No Sleep Is patient sleeping during reassessment? No Presence of Pain Presence of Pain Yes Pain Scale Used Protocol: PSCALES Pain Scale Used Numeric Location Left, Right or Bilateral Left Pain Location Body Site Ankle Intensity 5 Scale Used Numeric Pain Behavior Guarding Aggravating Factors Walking <Diru,Happiness A - Last Filed: 02/06/18 12:27> ED Course and Treatment: 02/13/18 05:22 The documented history was done by the physician cook restaurant. The documented physical exam was done by the physician cook restaurant. The documented procedures were done by the physician cook restaurant, I was available for consultation during the PA/[employer] evaluation. The chart was reviewed by me, and I agree with the management and plan. - RAD Interpretation Radiology Orders: 02/06/18 10:44 ANKLE LEFT 3 VIEWS ROUTINE [RAD] Stat - Medication Orders Current Medication Orders: Discontinued Medications Ibuprofen (Motrin Tab) 600 mg PO STAT STA Stop: 02/06/18 11:14 Last Admin: 02/06/18 11:32 Dose: 600 mg MAR Pain/Vitals Document 02/06/18 11:32 LA (Rec: 02/06/18 11:35 LA [id number]) Pain Reassessment Is This A Pain ReAssessment? No Sleep Is patient sleeping during reassessment? No Presence of Pain Presence of Pain Yes Pain Scale Used Protocol: PSCALES Pain Scale Used Numeric Location Left, Right or Bilateral Left Pain Location Body Site Ankle Intensity 5 Scale Used Numeric Pain Behavior Guarding Aggravating Factors Walking <Romaine Ewing - Last Filed: 02/13/18 05:23> Disposition/Present on Arrival - Present on Arrival Any Indicators Present on Arrival: No History of DVT/PE: No History of Uncontrolled Diabetes: No Urinary Catheter: No History of Decub. Ulcer: No History Surgical Site Infection Following: None - Disposition Have Diagnosis and Disposition been Completed?: Yes Disposition Time: 12:35 Patient Plan: Discharge <Modesto Wright - Last Filed: 02/06/18 12:27> <Romaine Ewing - Last Filed: 02/13/18 05:23> - Disposition Diagnosis: Ankle sprain Disposition: HOME/ ROUTINE Condition: STABLE Discharge Instructions (ExitCare): Ankle Sprain (DC) Additional Instructions: Rest, Ice, compress and elevate ankle Follow up with your Doctor/Orthopedist Return top ED for any new or worsening symptoms Prescriptions: RX: Ibuprofen [Motrin Tab] 600 mg PO Q6 #10 tab Referrals: Aroldo Hutchinson MD [Staff Provider] - Follow up with primary Forms: [employer] (Faroese), WORK NOTE
--- NOTE | 2018-02-06 12:43 | RAD ---
Date of service: 02/06/2018 PROCEDURE: Left Ankle Radiographs. HISTORY: ankle pain s/p trauma COMPARISON: None FINDINGS: BONES: Normal. No fracture. JOINTS: Normal. No osteoarthritis. Ankle mortise maintained. Talar dome intact SOFT TISSUES: Normal. OTHER FINDINGS: None. IMPRESSION: Normal left ankle radiographs.
[2018-02-06 13:19] VITALS: BP 133/77; PULSE 95; RESP 18; O2SAT 100
== END 2018-02-06 13:30 | disposition home or self-care (01) ==
LOC: ED 10:13
DX: S93.402A Sprain of unspecified ligament of left ankle, initial encounter (principal); X50.1XXA Overexertion from prolonged static or awkward postures, initial encounter; Y92.9 Unspecified place or not applicable

== ENCOUNTER 2018-08-20 18:18 | Observation (INO) | payer OTHER ==
[2018-08-20 18:18] VITALS: BMI 47.4
[2018-08-20 19:58] LABS: PH,URINE 6.5 (4.7-8.0); URINE BILIRUBIN NEGATIVE (NEGATIVE); URINE BLOOD NEGATIVE (NEGATIVE); URINE GLUCOSE (UA) NEGATIVE (NEGATIVE); URINE LEUKOCYTE ESTERASE SMALL Leu/uL (NEGATIVE); URINE PROTEIN NEGATIVE mg/dL (<30 mg/dL); URINE UROBILINOGEN 0.2 E.U./dL (<1 E.U./dL)
[2018-08-20 20:01] LABS: BASO # 0.02 K/mm3 (0.0-2.0); BASO % 0.2 % (0.0-3.0); EOS # 0.2 (0.0-0.7); HEMOGLOBIN 12.2 g/dL (12.0-16.0); LYMPH # 3.3 (1.2-3.4); LYMPH % 33.1 % (22.0-35.0); MEAN CELL VOLUME 79.3 fl (80.0-105.0); MEAN CORPUSCULAR HEMOGLOBIN 25.7 pg (25.0-35.0); MEAN CORPUSCULAR HGB CONC 32.4 g/dl (31.0-37.0); MEAN PLATELET VOLUME 10.6 fl (7.0-11.0); MONO # 0.7 (0.1-0.6); MONO % 6.7 % (1.0-6.0); RBC 4.74 10^6/uL (3.5-6.1); RED CELL DISTRIBUTION WIDTH 15.6 % (11.5-14.5)
[2018-08-20 20:05] LABS: ALB/GLOB RATIO 1.3 (1.1-1.8); ALBUMIN 3.8 g/dL (3.0-4.8); ALT/SGPT 20 U/L (7-56); AST/SGOT 18 U/L (14-36); BLOOD UREA NITROGEN 18 mg/dL (7-21); CALCIUM 8.7 mg/dL (8.4-10.5); GFR NON-AFRICAN AMERICAN > 60
[2018-08-20 20:14] LABS: URINE APPEARANCE SL CLOUDY (CLEAR); URINE COLOR YELLOW (YELLOW)
[2018-08-20 20:16] LABS: TROPONIN I < 0.01 ng/mL; URINE EPITHELIAL CELLS MANY /hpf (0-5)
[2018-08-20 20:17] LABS: URINE BACTERIA MANY /hpf
[2018-08-20] MEDS: Sodium Chloride 0.9% 500 ML IV STA ×2 (21:34→22:21)
--- NOTE | 2018-08-20 21:39 | ED PDOC ---
Arrival/HPI - General Chief Complaint: Chest Pain Time Seen by Provider: 08/20/18 18:44 Historian: Patient - History of Present Illness Narrative History of Present Illness (Text): 08/20/18 21:36 38-year-old female with a history of asthma and smoking presents today with a 2- day history of intermittent chest pain. Patient describes a sharp pressure type pain located to the left side of the chest that has been on and off for the past 2 days. Patient states when she develops the pain she feels slightly short of breath. She denies back pain. No nausea vomiting diarrhea or constipation. She denies abdominal pain. No urinary symptoms. She denies any recent travel. She denies control pills. She denies leg pain or calf swelling. No medications have been taken at home. Patient denies dizziness or weakness. No other complaints Past Medical History - Provider Review Nursing Documentation Reviewed: Yes Primary Care Physician: NO FAMILY PROVIDER - Travel History Have you recently traveled outside [place] w/in the past 3 mons?: No - Infectious Disease Hx of Infectious Diseases: None - Tetanus Immunization Tetanus Immunization: Unknown - Cardiac Hx Cardiac Disorders: No - Pulmonary Hx Respiratory Disorders: Yes Hx Asthma: Yes - Neurological Hx Neurological Disorder: No - HEENT Hx HEENT Disorder: No - Renal Hx Renal Disorder: No - Endocrine/Metabolic Hx Endocrine Disorders: No - Hematological/Oncological Hx Blood Disorders: No - Integumentary Hx Dermatological Disorder: No - Musculoskeletal/Rheumatological Hx Musculoskeletal Disorders: No - Gastrointestinal Hx Gastrointestinal Disorders: No - Genitourinary/Gynecological Hx Genitourinary Disorders: No - Psychiatric Hx Psychophysiologic Disorder: No Hx Substance Use: No - Past Surgical History Past Surgical History: No Previous - Surgical History Hx Orthopedic Surgery: Yes (left roator cuff surgery) Other/Comment: right oophorectomy - Anesthesia Hx Anesthesia: Yes Hx Anesthesia Reactions: No Hx Malignant Hyperthermia: No - Suicidal Assessment Feels Threatened In Home Enviroment: No Family/Social History - Physician Review Nursing Documentation Reviewed: Yes Family/Social History: Unknown Family HX Smoking Status: Light Smoker < 10 Cigarettes Daily Hx Alcohol Use: Yes Frequency of alcohol use: Socially Hx Substance Use: No Hx Substance Use Treatment: No Allergies/Home Meds Allergies/Adverse Reactions: Allergies No Known Allergies Allergy (Verified 08/20/18 18:25) Home Medications: Home Meds Medication Instructions Recorded Confirmed Albuterol 0.083% [Albuterol 0.083% 1 vial IH QID 09/05/17 08/20/18 Inhal Patti (2.5 mg/3 ml) UD] Albuterol HFA [Ventolin HFA 90 1 puff IH QID 09/05/17 08/20/18 mcg/actuation (8 g)] Review of Systems - Review of Systems Constitutional: absent: Fatigue, Fevers Respiratory: SOB. absent: Cough Cardiovascular: Chest Pain Gastrointestinal: absent: Abdominal Pain, Constipation, Diarrhea, Nausea, Vomiting Genitourinary Female: absent: Dysuria, Frequency, Hematuria Musculoskeletal: absent: Arthralgias, Back Pain, Neck Pain Skin: absent: Rash, Pruritis Neurological: absent: Headache, Dizziness Psychiatric: absent: Anxiety, Depression, Suicidal Ideation Physical Exam Vital Signs Reviewed: Yes Vital Signs Temp Pulse Resp BP Pulse Ox 08/20/18 18:18 97.6 F 91 H 18 139/80 100 Temperature: Afebrile Blood Pressure: Normal Pulse: Regular Respiratory Rate: Normal Appearance: Positive for: Well-Appearing, Non-Toxic, Comfortable Pain Distress: None Mental Status: Positive for: Alert and Oriented X 3 - Systems Exam Head: Present: Atraumatic Mouth: Present: Moist Mucous Membranes Neck: Present: Normal Range of Motion Respiratory/Chest: Present: Clear to Auscultation, Good Air Exchange. No: Respiratory Distress, Accessory Muscle Use Cardiovascular: Present: Regular Rate and Rhythm, Normal S1, S2. No: Murmurs Abdomen: No: Tenderness, Distention, Peritoneal Signs, Rebound, Guarding Back: Present: Normal Inspection. No: CVA Tenderness, Midline Tenderness, Paraspinal Tenderness Upper Extremity: Present: Normal ROM Lower Extremity: Present: Normal ROM. No: Edema Neurological: Present: GCS=15, Speech Normal Skin: Present: Warm, Dry, Normal Color. No: Rashes Psychiatric: Present: Alert, Oriented x 3 Medical Decision Making ED Course and Treatment: 08/20/18 21:37 Pt with chest pain cbc; within normal limits cmp; within normal limits trop: Within normal limits D-dimer: Within normal limits ekg; normal sinus rhythm at 95 bpm normal axis normal intervals no ST elevations QTC 434 cxr: No infiltrate or effusion no cardiomegaly Patient reassessment: Patient resting comfortably in the emergency room. Vital signs are stable. Patient in no distress. Repeat troponin at 23: 50 2nd trop; negative pt with continued CP pain; case discussed with dr. sorto; pt with smoking history, morbid obesity; no PMD. with left sided cp radiating to left jaw. impression; chest pain admit remote tele obs. Reassessment Condition: Re-examined, Unchanged - Lab Interpretations Lab Results: D-Dimer, Quantitative < 200 ng/mlDDU (0-243) 08/20/18 19:50 Troponin I < 0.01 ng/mL 08/20/18 19:50 Total Bilirubin 0.3 mg/dL (0.2-1.3) 08/20/18 19:50 AST 18 U/L (14-36) 08/20/18 19:50 ALT 20 U/L (7-56) 08/20/18 19:50 Alkaline Phosphatase 75 U/L (38-126) 08/20/18 19:50 Total Protein 6.9 g/dL (5.8-8.3) 08/20/18 19:50 Albumin 3.8 g/dL (3.0-4.8) 08/20/18 19:50 Globulin 3.0 gm/dL 08/20/18 19:50 Albumin/Globulin Ratio 1.3 (1.1-1.8) 08/20/18 19:50 Urine Color Yellow (YELLOW) 08/20/18 19:50 Urine Appearance Sl cloudy (CLEAR) 08/20/18 19:50 Urine pH 6.5 (4.7-8.0) 08/20/18 19:50 Ur Specific [place] 1.020 (1.005-1.035) 08/20/18 19:50 Urine Protein Negative mg/dL (<30 mg/dL) 08/20/18 19:50 Urine Glucose (UA) Negative mg/dL (NEGATIVE) 08/20/18 19:50 Urine Ketones Negative mg/dL (NEGATIVE) 08/20/18 19:50 Urine Blood Negative (NEGATIVE) 08/20/18 19:50 Urine Nitrate Negative (NEGATIVE) 08/20/18 19:50 Urine Bilirubin Negative (NEGATIVE) 08/20/18 19:50 Urine Urobilinogen 0.2 E.U./dL (<1 E.U./dL) 08/20/18 19:50 Ur Leukocyte Esterase Small Nithin/uL (NEGATIVE) H 08/20/18 19:50 Urine RBC None /hpf (0-2) 08/20/18 19:50 Urine WBC 5 - 10 /hpf (0-6) H 08/20/18 19:50 Ur Epithelial Cells Many /hpf (0-5) H 08/20/18 19:50 Urine Bacteria Many /hpf (NONE) 08/20/18 19:50 - RAD Interpretation Radiology Orders: 08/20/18 19:17 CHEST PORTABLE [RAD] Stat - Medication Orders Current Medication Orders: Sodium Chloride (Sodium Chloride 0.9%) 500 mls @ 999 mls/hr IV .Q31M STA Stop: 08/20/18 21:45 Last Admin: 08/20/18 21:34 Dose: Not Given Non-Admin Reason: Patient Refused Discontinued Medications Ketorolac Tromethamine (Toradol) 30 mg IVP STAT STA Stop: 08/20/18 21:15 Last Admin: 08/20/18 21:33 Dose: Not Given Non-Admin Reason: Patient Refused Disposition/Present on Arrival - Present on Arrival Any Indicators Present on Arrival: No History of DVT/PE: No History of Uncontrolled Diabetes: No Urinary Catheter: No History of Decub. Ulcer: No History Surgical Site Infection Following: None - Disposition Have Diagnosis and Disposition been Completed?: Yes Diagnosis: Chest pain Disposition: HOSPITALIZED Disposition Time: 21:39 Patient Plan: Observation Patient Problems: Current Active Problems Problem Status Onset Chest pain Acute Condition: GOOD Discharge Instructions (ExitCare): Chest Pain (ED) Referrals: FAMILY PROVIDER,NO [Primary Care Provider] - Follow up with primary Forms: [employer] (Afghan)
[2018-08-21] MEDS ORDERED: Sodium Chloride 0.45% 1,000 ML IV SCH (09:00)
[2018-08-21] MEDS ORDERED: Albuterol 0.083% Inhal Sol (2.5 mg/3 mL) UD IH PRN (09:05)
--- NOTE | 2018-08-21 09:46 | HP ---
DATE OF EXAM: 08/21/2018 HISTORY OF PRESENT ILLNESS: She came to the emergency room last night with a two-day history of intermittent chest pain that is sharp, pressure type pain located to the left side of her chest. It started about two days ago, also a little shortness of breath with this. No nausea, vomiting, or constipation. No abdominal pain. No urinary tract symptoms that she knows of. No leg pains. She does not take any medications at home. She is a 38-year-old white female, history of asthma and smoking. She has an okay job, not that sharp, she works at [employer]. PAST MEDICAL HISTORY: Asthma that has not really acted up. She had a left rotator cuff surgery. She had a right oophorectomy. FAMILY HISTORY: Hypertension in the family. SOCIAL HISTORY: Still smokes cigarettes. Occasional alcohol. No drugs. ALLERGIES: NO KNOWN DRUG ALLERGIES. MEDICATIONS: She is on albuterol inhaler, Ventolin HFA. REVIEW OF SYSTEMS: No fever. No fatigue. No abdominal pain, constipation, diarrhea, nausea, or vomiting. But she does have shortness of breath and chest pain. No problems urinating. No back pain or arthralgias. No rashes or ulcers. No headaches or dizziness. No anxiety, depression, or suicidal ideation. PHYSICAL EXAMINATION VITAL SIGNS: She has a 97.6 temperature, 91 pulse, 18 respiratory rate, 139/80 blood pressure, and 100% O2 sat on room air. GENERAL: She is resting in bed, well-appearing, comfortable, smiling, slept well. Alert and oriented x3. Chest pain is much better this morning than it was last night. HEENT: Head; atraumatic, normocephalic. Mucous membranes are moist. NECK: Supple. No JVD. Thyroid midline. No palpable appreciable lymphadenopathy cervically. HEART: Regular rate. Normal S1, S2. LUNGS: Clear to auscultation with fair effort. No wheezes, rhonchi or rales. ABDOMEN: Soft, morbidly obese, nontender. Positive bowel sounds. No guarding, no rebound or CVA tenderness. EXTREMITIES: No edema. NEUROLOGIC: GCS is 15. Cranial nerves II through XII grossly intact. Alert and oriented x3. She is feeling better than yesterday. SKIN: Warm and dry. No apparent ulcers or rashes as far as I could tell from my exam. DIAGNOSTICS: She an EKG, which showed normal sinus rhythm. No ST elevations. Chest x-ray showed no infiltrate. LABORATORY DATA: She had multiple labs done. Urine showed many bacteria. A 139 sodium, potassium 4.6, BUN 18, creatinine 0.6, GFR is greater than 60, sugar is 85, calcium is 8.7, total bilirubin is 0.3. AST is 18, ALT is 20, alkaline phosphatase 75. Lactate dehydrogenase is 49. Total creatine kinase is 46. First two troponin I are less than 0.01. Total protein is 6.9, albumin is 3.8. The D-dimer is less than 200. White count is 10, hemoglobin is 12.2, hematocrit 37.6, platelets are 293. ASSESSMENT AND PLAN: She is here for chest pain. She is on observation. She also had a little bit of urinary tract infection. I called in Cardiology, checking her troponins. She will be on aspirin, Cipro and her puffer. We will continue aggressive treatment and care. We will watch her for 24 hours in observation and hopefully discharge her home. She wanted to go for an outpatient stress test, we will wait and see what Cardiology has to say. She is here for chest pain and urinary tract infection. Fransisco Healy DO
[2018-08-21] MEDS ORDERED: Albuterol HFA 90 mcg/actuation (8 g) IH SCH (10:00)
--- NOTE | 2018-08-21 10:50 | CARD ---
APPROVED REPORT Date of service: 08/20/2018 EKG Measurement Heart [id number] <Conclusion> Poor data quality, interpretation may be adversely affected Normal sinus rhythm Normal ECG
--- NOTE | 2018-08-21 10:56 | CP.PCM.PN ---
Subjective - Date & Time of Evaluation Date of Evaluation: 08/21/18 Time of Evaluation: 04:00 - Subjective Subjective: TBD Objective - Vital Signs/Intake and Output Vital Signs (last 24 hours): Temp Pulse Resp BP Pulse Ox 97.1 F L 94 H 20 107/73 96 08/21/18 06:00 08/21/18 06:00 08/21/18 06:00 08/21/18 06:00 08/21/18 06:00 Intake and Output: 08/21/18 08/21/18 06:59 18:59 Intake Total 480 Balance 480 - Medications Medications: Current Medications Albuterol Sulfate (Albuterol 0.083% Inhal Patti (2.5 Mg/3 Ml) Ud) 2.5 mg IH [id number] CHEVY Aspirin (Aspirin Chewable) 81 mg PO DAILY [facility] Last Admin: 08/21/18 09:31 Dose: 81 mg Ciprofloxacin (Cipro) 500 mg PO Q12 CHEVY; Protocol Stop: 08/22/18 08:55 Last Admin: 08/21/18 09:31 Dose: 500 mg Sodium Chloride (Sodium Chloride 0.45%) 1,000 mls @ 40 mls/hr IV .Q24H CHEVY Last Admin: 08/21/18 09:31 Dose: 40 mls/hr Ketorolac Tromethamine (Toradol) 30 mg IVP Q6 PRN PRN Reason: Pain, severe (8-10) - Labs Labs: 08/20/18 19:50 08/20/18 19:50
--- NOTE | 2018-08-21 12:23 | RAD ---
Date of service: 08/20/2018 HISTORY: Chest pain. COMPARISON: 12/25/2017. FINDINGS: LUNGS: No active pulmonary disease. PLEURA: No significant pleural effusion identified, no pneumothorax apparent. CARDIOVASCULAR: No atherosclerotic calcification present Normal. OSSEOUS STRUCTURES: No significant abnormalities. VISUALIZED UPPER ABDOMEN: Normal. OTHER FINDINGS: None. IMPRESSION: No active disease. No significant interval change compared to the prior examination(s).
--- NOTE | 2018-08-21 15:32 | CON ---
DATE OF CONSULTATION: 08/21/2018 CARDIOLOGY CONSULTATION HISTORY: The patient is a 38-year-old woman, who presents with 2 days of atypical chest pain. The patient has chronic shortness of breath, in which she has taken puffers at home. The patient is an active smoker and has no interest in stopping smoking. There is no previous cardiac history noted. No hypertension. No diabetes mellitus. SOCIAL HISTORY: Active smoker. The patient works in [employer] REVIEW OF SYSTEMS: Fourteen- point review of systems is reviewed in detail. No additional symptoms are noted. No edema in the lower extremities. PHYSICAL EXAMINATION: VITAL SIGNS: Blood pressure is 107/73, the heart rate is in the 80s. NECK: Negative JVD. LUNGS: Without rales. CARDIAC: Heart rate S1, S2. EXTREMITIES: Without edema. EKG is within normal limits. Troponins are negative x4. BUN and creatinine are unremarkable with a hemoglobin of 12.2. IMPRESSION: 1. Atypical chest pain. 2. No evidence for acute coronary syndrome. 3. Chronic dyspnea although the patient still smokes. 4. Obesity. 5. Urinary tract infection. PLAN: Given these findings, there is no evidence for acute coronary syndrome. It is unlikely that the patient has significant coronary disease. I have discussed with the patient about her need to stop smoking, especially given her dyspnea and use of bronchodilators. We will obtain a D-dimer. If negative, then we will arrange for an outpatient stress test next week. Boogie Ferreira MD
[2018-08-21] MEDS: Albuterol 0.083% Inhal Sol (2.5 mg/3 mL) UD IH SCH ×2 (16:10→22:00)
[2018-08-22] MEDS: Albuterol 0.083% Inhal Sol (2.5 mg/3 mL) UD IH SCH ×3 (01:28→13:17)
[2018-08-22 06:27] LABS: HEMOGLOBIN 10.6 g/dL (12.0-16.0); MEAN CELL VOLUME 78.9 fl (80.0-105.0); MEAN CORPUSCULAR HEMOGLOBIN 25.4 pg (25.0-35.0); MEAN CORPUSCULAR HGB CONC 32.2 g/dl (31.0-37.0); MEAN PLATELET VOLUME 10.2 fl (7.0-11.0); RBC 4.17 10^6/uL (3.5-6.1); RED CELL DISTRIBUTION WIDTH 15.7 % (11.5-14.5)
[2018-08-22 06:39] LABS: ALB/GLOB RATIO 1.1 (1.1-1.8); ALBUMIN 3.1 g/dL (3.0-4.8); ALT/SGPT 16 U/L (7-56); AST/SGOT 18 U/L (14-36); BLOOD UREA NITROGEN 23 mg/dL (7-21); CALCIUM 8.1 mg/dL (8.4-10.5); GFR NON-AFRICAN AMERICAN > 60
[2018-08-22 08:25] VITALS: BP 103/70; PULSE 77; RESP 18; TEMP 98.8; O2SAT 98
[2018-08-22] MEDS ORDERED: Pneumococcal 23-Valent Vaccine IM ONE (10:34)
--- NOTE | 2018-08-22 10:56 | DS ---
CHIEF COMPLAINT: She is resting comfortably in bed. She is eating well, slept fairly well. She is on IV fluids, albuterol, aspirin, Toradol. I did start her on Cipro, but apparently, it fell off the chart, I will put her back on it. She will be discharged today. PHYSICAL EXAMINATION VITAL SIGNS: She has a 98.8 temperature, 77 pulse, 103/70 blood pressure, 18 respiratory rate, 98% O2 sat on room air. HEENT: Head: Atraumatic, normocephalic. HEART: Regular rate. LUNGS: Decreased breath sounds. ABDOMEN: Soft, obese. EXTREMITIES: No edema. She was told to lose weight and stop smoking. She had UTI. LABORATORY DATA: White count 8, 10.6 hemoglobin, 32.9 hematocrit with 226 platelets. D-dier is less than 200. Sodium 137, potassium 4.1, BUN 23, creatinine 0.6, GFR is greater than 60, sugar is 96, calcium is 8.1. Total bili is 0.2. AST is 18, ALT 16, alk phos is 67. All troponins are less than 0.01 and total protein is 6. She will be discharged on Cipro 500 twice a day for 7 more days. I will start her regular medications the pharmacy call my office. She will follow up in the outpatient with the primary care doctor. Fransisco Healy DO MTDD
== END 2018-08-22 15:55 | disposition home or self-care (01) ==
LOC: ED 18:18 → ERH 08-21 01:07 → 3RSO 08-21 01:59
PROVIDERS: ADMIT Family Medicine; ATTEND Family Medicine
DX: R07.89 Other chest pain (principal); N39.0 Urinary tract infection, site not specified; F17.210 Nicotine dependence, cigarettes, uncomplicated; J45.909 Unspecified asthma, uncomplicated; E66.9 Obesity, unspecified; Z68.42 Body mass index [BMI] 45.0-49.9, adult; Z82.49 Family history of ischemic heart disease and other diseases of the circulatory system; Z23 Encounter for immunization
CPT/HCPCS: 36415; 71045; 80053; 81001; 81025; 82550; 83615; 84484; 85025; 85027; 85378; 87086; 90471; 90732; 93005; 94640; 94760; 96361; 96374; 96376; 99285; G0378; J1885; J7030; J7040

== ENCOUNTER 2018-09-08 09:07 | Emergency (ER) | payer OTHER ==
[2018-09-08 09:07] VITALS: BMI 47.4
[2018-09-08 09:21] VITALS: RESP 18; TEMP 97.5; O2SAT 98
[2018-09-08] MEDS ORDERED: Albuterol-Ipratrop 3 mg / 0.5 (3 ml) UD IH STA (09:26)
--- NOTE | 2018-09-08 09:31 | ED PDOC ---
Arrival/HPI - General Chief Complaint: Cough, Cold, Congestion Time Seen by Provider: 09/08/18 09:11 Historian: Patient - History of Present Illness Narrative History of Present Illness (Text): 09/08/18 09:31 38-year-old female with a history of asthma and smoking history presents today with a 1 day history of nasal congestion and cough. Patient is complaining of dry cough with wheezing. Patient states he has a history of asthma she used her nebulizer 3 times at home yesterday. Patient complaining of subjective fevers and chills. No abdominal pain. No chest pain. No dizziness or weakness. Positive sick contacts at home. Patient states she has continued cough at home that caused her to vomit x 1. No other complaints Past Medical History - Provider Review Nursing Documentation Reviewed: Yes - Travel History Have you recently traveled outside [place] w/in the past 3 mons?: No - Infectious Disease Hx of Infectious Diseases: None - Tetanus Immunization Tetanus Immunization: Unknown - Cardiac Hx Cardiac Disorders: No - Pulmonary Hx Respiratory Disorders: Yes Hx Asthma: Yes - Neurological Hx Neurological Disorder: No - HEENT Hx HEENT Disorder: No - Renal Hx Renal Disorder: No - Endocrine/Metabolic Hx Endocrine Disorders: No - Hematological/Oncological Hx Blood Disorders: No - Integumentary Hx Dermatological Disorder: No - Musculoskeletal/Rheumatological Hx Musculoskeletal Disorders: No - Gastrointestinal Hx Gastrointestinal Disorders: No - Genitourinary/Gynecological Hx Genitourinary Disorders: No - Psychiatric Hx Psychophysiologic Disorder: No Hx Substance Use: No - Past Surgical History Past Surgical History: No Previous - Surgical History Hx Orthopedic Surgery: Yes (left roator cuff surgery) Other/Comment: right oophorectomy - Anesthesia Hx Anesthesia: Yes Hx Anesthesia Reactions: No Hx Malignant Hyperthermia: No - Suicidal Assessment Feels Threatened In Home Enviroment: No Family/Social History - Physician Review Nursing Documentation Reviewed: Yes Family/Social History: Unknown Family HX Smoking Status: Light Smoker < 10 Cigarettes Daily Hx Alcohol Use: Yes Frequency of alcohol use: Socially Hx Substance Use: No Hx Substance Use Treatment: No Allergies/Home Meds Allergies/Adverse Reactions: Allergies No Known Allergies Allergy (Verified 09/08/18 09:22) Home Medications: Home Meds Medication Instructions Recorded Confirmed Albuterol 0.083% [Albuterol 0.083% 1 vial IH QID 09/05/17 09/08/18 Inhal Patti (2.5 mg/3 ml) UD] Albuterol HFA [Ventolin HFA 90 1 puff IH QID 09/05/17 09/08/18 mcg/actuation (8 g)] Review of Systems - Review of Systems Constitutional: Fevers (subjective). absent: Fatigue ENT: Sore Throat, Sinus Congestion Respiratory: Cough, Wheezing. absent: SOB Cardiovascular: absent: Chest Pain, Palpitations Gastrointestinal: absent: Abdominal Pain, Nausea, Vomiting Genitourinary Female: absent: Dysuria, Frequency, Hematuria Musculoskeletal: absent: Arthralgias, Back Pain, Neck Pain Skin: absent: Rash, Pruritis Neurological: absent: Headache, Dizziness Psychiatric: absent: Anxiety, Depression, Suicidal Ideation Physical Exam Vital Signs Reviewed: Yes Vital Signs Temp Pulse Resp BP Pulse Ox 09/08/18 09:17 97.5 F L 94 H 18 137/98 H 98 Temperature: Afebrile Blood Pressure: Hypertensive Pulse: Regular Respiratory Rate: Normal Appearance: Positive for: Well-Appearing, Non-Toxic, Comfortable Pain Distress: None Mental Status: Positive for: Alert and Oriented X 3 - Systems Exam Head: Present: Atraumatic Ears: Present: Normal Mouth: Present: Moist Mucous Membranes, Normal Lips, Normal Tounge. No: Drooling, Trismus Pharnyx: Present: Normal. No: ERYTHEMA, EXUDATE, TONSILS ENLARGED, Peritonsilar Swelling, Uvular Deviation, Muffled/Hoarse Voice Nose (External): Present: Atraumatic Nose (Internal): Present: Normal Inspection Neck: Present: Normal Range of Motion Respiratory/Chest: Present: Good Air Exchange, Wheezes, Rhonchi. No: Clear to Auscultation, Respiratory Distress, Accessory Muscle Use Cardiovascular: Present: Regular Rate and Rhythm Abdomen: No: Tenderness, Distention, Rebound, Guarding Neurological: Present: GCS=15 Skin: Present: Warm, Dry, Normal Color. No: Rashes Psychiatric: Present: Alert, Oriented x 3 Medical Decision Making ED Course and Treatment: 09/08/18 09:34 Patient is nontoxic well-appearing in no distress. Vital signs are stable. duoneb prednisone Po cxr; no infiltrate pt reassessment; pt feeling better with medications; vitals stable. zithromax given Po. I advised follow up with primary care physician within the next 2 days. I advised increase fluids and return if symptoms worsen persist or if new symptoms develop. Patient verbalizes understanding of discharge instructions and need for immediate followup. IMPRESSION; Cough, asthma Motrin one tablet every 6 hours as needed for pain/fever reduction prednisone daily x 4 days. Zithromax one tablet once daily x4 days Increase fluids Followup with primary care physician the next 2 days Return if symptoms worsen persist or if new symptoms develop 09/08/18 10:34 Reassessment Condition: Re-examined, Improved - RAD Interpretation Radiology Orders: 09/08/18 09:26 CHEST TWO VIEWS (PA/LAT) [RAD] Stat - Medication Orders Current Medication Orders: Discontinued Medications Albuterol/Ipratropium (Duoneb 3 Mg/0.5 Mg (3 Ml) Ud) 3 ml IH STAT STA Stop: 09/08/18 09:27 Prednisone (Prednisone Tab) 60 mg PO STAT ONE Stop: 09/08/18 09:27 Disposition/Present on Arrival - Present on Arrival Any Indicators Present on Arrival: No History of DVT/PE: No History of Uncontrolled Diabetes: No Urinary Catheter: No History of Decub. Ulcer: No History Surgical Site Infection Following: None - Disposition Have Diagnosis and Disposition been Completed?: Yes Diagnosis: Cough, Asthma Disposition: HOME/ ROUTINE Disposition Time: 09:29 Patient Plan: Discharge Patient Problems: Current Active Problems Problem Status Onset Asthma Acute Cough Acute Condition: GOOD Discharge Instructions (ExitCare): Asthma, Adult (DC), Cough, Adult (DC) Additional Instructions: Motrin one tablet every 6 hours as needed for pain/fever reduction Prednisone daily x 4 days. Zithromax one tablet once daily x4 days Increase fluids Followup with primary care physician the next 2 days Return if symptoms worsen persist or if new symptoms develop Prescriptions: Albuterol HFA [Ventolin HFA 90 mcg/actuation (8 g)] 2 puff IH [id number] PRN #1 inhaler PRN Reason: Cough Albuterol 0.083% [Albuterol 0.083% Inhal Patti (2.5 mg/3 ml) UD] 1 vial IH TID PRN #1 packet PRN Reason: Cough Azithromycin [Zithromax] 250 mg PO DAILY #4 tab Ibuprofen [Motrin] 600 mg PO Q6H PRN #20 tab PRN Reason: pain/fever reduction predniSONE [predniSONE Tab] 3 tab PO DAILY #12 tab Referrals: Alfreda Ragsdale MD [Medical Doctor] - Follow up with primary Fransisco Healy DO [Staff Provider] - Follow up with primary [facility] [Outside] - Follow up with primary Forms: [employer] ([employer]), WORK NOTE
--- NOTE | 2018-09-08 10:34 | RAD ---
Date of service: 09/08/2018 HISTORY: cough/asthma COMPARISON: 08/20/2018 TECHNIQUE: Chest PA and lateral views FINDINGS: LUNGS: No active pulmonary disease. Mild peribronchial thickening PLEURA: No significant pleural effusion identified. No pneumothorax apparent. CARDIOVASCULAR: No aortic atherosclerotic calcification present. Normal cardiac size. No pulmonary vascular congestion. OSSEOUS STRUCTURES: No significant abnormalities. VISUALIZED UPPER ABDOMEN: Normal. OTHER FINDINGS: None. IMPRESSION: No active disease. Mild peribronchial thickening
[2018-09-08 10:43] VITALS: BP 122/69; PULSE 79
== END 2018-09-08 10:44 | disposition home or self-care (01) ==
LOC: ED 09:07
DX: J45.909 Unspecified asthma, uncomplicated (principal); F17.210 Nicotine dependence, cigarettes, uncomplicated